=== PATIENT | male | born 1990 | race Caucasian/White ===

== ENCOUNTER 2017-01-02 11:49 | Emergency (ER) | payer SELFPAY ==
[2017-01-02 11:56] VITALS: BP 116/76; PULSE 82; RESP 20; TEMP 97.6; O2SAT 99
--- NOTE | 2017-01-03 11:00 | CARD ---
APPROVED REPORT EKG Measurement Heart [id number] <Conclusion> Normal sinus rhythm Rightward axis Borderline ECG
== END 2017-01-02 12:00 | disposition left against medical advice (07) ==
LOC: C.ER 11:49
DX: Z02.89 Encounter for other administrative examinations (principal); R07.9 Chest pain, unspecified
CPT/HCPCS: 93005; LWBS0

== ENCOUNTER 2017-01-02 14:36 | Emergency (ER) | payer OTHER ==
[2017-01-02 15:00] VITALS: TEMP 98
--- NOTE | 2017-01-02 15:53 | C.PDOC ---
History Of Present Illness 26 year old male presents to the ED for evaluation of left-sided chest pain which began yesterday afternoon. Patient also notes the pain travels down his left arm. Patient spoke to his PMD on the phone, who advised him to present to the ED for further evaluation. Patient states his symptoms have improved since yesterday and denies nausea, vomiting, extremity numbness/weakness. Time Seen by Provider: 01/02/17 15:17 Chief Complaint (Nursing): Chest Pain History Per: Patient History/Exam Limitations: no limitations Onset/Duration Of Symptoms: Hrs Current Symptoms Are (Timing): Better (states his pain is minimal now and no pain in the left arm) Pain Scale Rating Of: 2 Quality: "Pain" Associated Symptoms: denies: Nausea Exacerbating Factors: Deep Breathing Additional History Per: Patient Past Medical History Reviewed: Historical Data, Nursing Documentation, Vital Signs Vital Signs: Last Vital Signs Temp 98 F 01/02/17 14:56 Pulse 84 01/02/17 16:25 Resp 18 01/02/17 16:25 BP 103/66 01/02/17 16:25 Pulse Ox 98 01/02/17 16:25 - Medical History PMH: No Chronic Diseases Surgical History: Appendectomy Family History: States: Unknown Family Hx - Social History Hx Alcohol Use: Yes Hx Substance Use: Yes - Immunization History Hx Tetanus Toxoid Vaccination: No Hx Influenza Vaccination: No Review Of Systems Except As Marked, All Systems Reviewed And Found Negative. Cardiovascular: Positive for: Chest Pain Gastrointestinal: Negative for: Nausea, Vomiting Musculoskeletal: Positive for: Arm Pain (left) Neurological: Negative for: Weakness, Numbness Physical Exam - Physical Exam Appears: Non-toxic, No Acute Distress Skin: Normal Color, Warm, Dry, No Rash Head: Atraumatic, Normacephalic Eye(s): bilateral: Normal Inspection, PERRL, EOMI Oral Mucosa: Moist Neck: Normal ROM, Supple Chest: Symmetrical, No Deformity, Tenderness (left chest) Cardiovascular: Rhythm Regular, No Friction Rub, No Murmur Respiratory: Normal Breath Sounds, No Rales, No Rhonchi, No Wheezing Gastrointestinal/Abdominal: Bowel Sounds (active), Soft, No Tenderness Back: No Vertebral Tenderness, No Paraspinal Tenderness Extremity: Normal ROM, Capillary Refill (less than 2 seconds ), No Swelling Neurological/Psych: Oriented x3, Normal Speech, Normal Cognition, Normal Motor, Normal Sensation Gait: Steady ED Course And Treatment O2 Sat by Pulse Oximetry: 99 (on RA) Pulse Ox Interpretation: Normal Medical Decision Making Medical Decision Making: Progress: CXR ordered and reviewed. Motrin PO administered. On re-exam, the patient reports improvement of symptoms. Lungs are CTA, heart is RRR, Abdomen remains soft, non-tender and tolerating PO well. Ambulatory in the ED with steady. Follow up with the medical doctor within 1-2 days, Return if worsened. Disposition - Disposition Referrals: [facility] [Outside] Disposition: HOME/ ROUTINE Disposition Time: 16:18 Condition: STABLE Additional Instructions: Follow up with the medical doctor within 1-2 days, Return if worsened. 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 - Scribe Statement The provider has reviewed the documentation as recorded by the Scribe (Yolette Mckee) All medical record entries made by the Scribe were at my direction and personally dictated by me. I have reviewed the chart and agree that the record accurately reflects my personal performance of the history, physical exam, medical decision making, and the department course for this patient. I have also personally directed, reviewed, and agree with the discharge instructions and disposition.
--- NOTE | 2017-01-02 16:11 | RAD ---
HISTORY: chest pain COMPARISON: None available. TECHNIQUE: Chest PA and lateral FINDINGS: LUNGS: No focal consolidation. Please note that chest x-ray has limited sensitivity for the detection of pulmonary masses. PLEURA: No significant pleural effusion identified. No definite pneumothorax . CARDIOVASCULAR: The cardiomediastinal silhouette appears within normal limits of size. OSSEOUS STRUCTURES: No acute osseous abnormality identified. VISUALIZED UPPER ABDOMEN: Unremarkable. OTHER FINDINGS: None. IMPRESSION: No focal consolidation, significant pleural effusion, or definite pneumothorax identified.
[2017-01-02 16:26] VITALS: BP 103/66; PULSE 84; RESP 18
[2017-01-03 18:36] VITALS: O2SAT 99
== END 2017-01-02 16:26 | disposition home or self-care (01) ==
LOC: C.ER 14:36
DX: R07.89 Other chest pain (principal)

== ENCOUNTER 2017-03-26 16:31 | Emergency (ER) | payer OTHER ==
[2017-03-26 16:46] VITALS: TEMP 98.6
[2017-03-26] MEDS ORDERED: Naproxen 550 mg Tab PO STA (18:19)
[2017-03-26] MEDS ORDERED: Naproxen 550 mg Tab PO ONE (18:26)
--- NOTE | 2017-03-26 18:42 | C.PDOC ---
History Of Present Illness Pt c/o right testicle pain. Denies injury. Time Seen by Provider: 03/26/17 18:14 Chief Complaint (Nursing): Male Genitourinary History Per: Patient Onset/Duration Of Symptoms: Days (2) Current Symptoms Are (Timing): Still Present Severity: Moderate Quality Of Discomfort: "Pain" Alleviating Factors: None Additional History Per: Prior Records Past Medical History Reviewed: Historical Data, Nursing Documentation, Vital Signs Vital Signs: Last Vital Signs Temp 98.6 F 03/26/17 16:43 Pulse 71 03/26/17 16:43 Resp 18 03/26/17 16:43 BP 128/82 03/26/17 16:43 Pulse Ox 100 03/26/17 18:42 - Medical History PMH: No Chronic Diseases Surgical History: Appendectomy Family History: States: Unknown Family Hx - Social History Hx Alcohol Use: Yes Hx Substance Use: No - Immunization History Hx Tetanus Toxoid Vaccination: No Hx Influenza Vaccination: No Hx Pneumococcal Vaccination: No Review Of Systems Except As Marked, All Systems Reviewed And Found Negative. Constitutional: Negative for: Fever, Weakness Cardiovascular: Negative for: Chest Pain Respiratory: Negative for: Shortness of Breath Gastrointestinal: Negative for: Vomiting, Abdominal Pain Genitourinary: Positive for: Scrotal Pain. Negative for: Dysuria, Penile Discharge Musculoskeletal: Negative for: Neck Pain, Back Pain Skin: Negative for: Rash Neurological: Negative for: Weakness, Numbness Physical Exam - Physical Exam Appears: Non-toxic, No Acute Distress Skin: Normal Color, Warm, Dry, No Rash Head: Atraumatic, Normacephalic Eye(s): bilateral: Normal Inspection, PERRL, EOMI Neck: Normal ROM, Supple Gastrointestinal/Abdominal: Soft, No Tenderness Back: No CVA Tenderness Male Genital: Testicular Tenderness (right), No Scrotal Swelling, Circumcised, Other (Normal cremasteric reflex) Extremity: Normal ROM Neurological/Psych: Oriented x3, Normal Motor, Normal Sensation ED Course And Treatment O2 Sat by Pulse Oximetry: 100 Pulse Ox Interpretation: Normal Disposition - Disposition Disposition Time: 19:00 Condition: FAIR - Clinical Impression Clinical Impression: Right testicular pain Physician Patient Turnover Patient Signed Over To: Maral Wright Handoff Comments: to f/up Testicle US and Urine.
--- NOTE | 2017-03-26 19:24 | US ---
EXAM: US Scrotum EXAM DATE/TIME: Exam ordered 03/26/2017 6:19 PM CLINICAL HISTORY: 27 years old, male; Pain; Other: Rt test pain; Additional info: Right testicle pain x 2 days TECHNIQUE: Real-time ultrasound of the scrotum with color Doppler and image documentation. COMPARISON: No relevant prior studies available. FINDINGS: Right testicle: The right testicle measures 4.3 x 1.9 x 3 cm. No torsion. Left testicle: The left testicle measures 3.9 x 2 x 2.9 cm. No torsion. Epididymides: The right epididymal head measures 1 x 1 x 1 cm centimeters. The left epididymis measures 0.6 x 0.8 x 0.9 cm. Scrotum: Unremarkable. Free fluid: Symmetric blood flow to both testes on color Doppler examination. A very small amount of fluid is noted at the base of the right Teste. Other findings: A single punctate echogenic focus is noted within the right teste. There is symmetric echotexture of the testes on grayscale images. IMPRESSION: 1. There is a very small right hydrocele. Otherwise unremarkable exam
[2017-03-26 19:33] LABS: URINE BACTERIA RARE (<OCC); URINE BILIRUBIN NEGATIVE (NEGATIVE); URINE CLARITY Clear (Clear); URINE COLOR Yellow (YELLOW); URINE GLUCOSE (UA) NORMAL (Normal); URINE LEUKOCYTE ESTERASE NEG Leu/uL (Negative); URINE NITRATE NEGATIVE (NEGATIVE); URINE PROTEIN NEGATIVE (NEGATIVE); URINE UROBILINOGEN NORMAL mg/dL (0.2-1.0)
[2017-03-26 19:35] LABS: URINE BLOOD NEGATIVE (NEGATIVE)
[2017-03-26 20:54] VITALS: BP 111/68; PULSE 84; RESP 16; O2SAT 98
== END 2017-03-26 20:54 | disposition home or self-care (01) ==
LOC: C.ER 16:31
DX: N50.811 Right testicular pain (principal)